=== PATIENT | male | born 1955 | race American Indian/Alaskan Native ===

== ENCOUNTER 2019-02-12 12:40 | Emergency (ER) | payer BC, OTHER ==
[~2019-02-12] VITALS: Ht 190.5 cm; Wt 117.9 kg
[~2019-02-12 12:40] MED LIST: AMOCLA875 PO; OXYACE5T PO; PERIDEX RINSE; RXCLIN PO; VITAMINS
[2019-02-12] MEDS ORDERED: ATOR10 (12:59)
[2019-02-12] MEDS ORDERED: LOSA25 PO (12:59)
[2019-02-12] MEDS ORDERED: TAMS.4ER PO (12:59)
== END 2019-02-12 14:19 | disposition home or self-care (01) ==
LOC: ER 12:40
DX: S61.211A Laceration without foreign body of left index finger without damage to nail, initial encounter (principal); Z85.46 Personal history of malignant neoplasm of prostate; Z88.0 Allergy status to penicillin; Z88.7 Allergy status to serum and vaccine; Z79.899 Other long term (current) drug therapy; W22.8XXA Striking against or struck by other objects, initial encounter
CPT/HCPCS: 12001; 90471; 90714; 99283-25

== ENCOUNTER → 2021-03-29 | Outpatient (CLI) | payer OTHER ==
[~2021-03-29] MED LIST changes: +ATOR10; +ATOR10 PO; +ATOR20 PO; +Aspir 8181 MG PO; +B-121000 MC3 PO; +GLUC500 PO; +Hair, Skin & N1 EACH PO; +LOSA25 PO; +LOSARTAN-HCTZ1 EACH PO; +TAMS.4ER PO; +ZYRTEC10 M2 PO
== END | disposition home or self-care (01) ==
LOC: LAB SHORT 10:40
DX: R30.0 Dysuria (principal)
CPT/HCPCS: 87077; 87086; 87186